=== PATIENT | male | born 1990 | race Caucasian/White ===

== ENCOUNTER 2022-12-31 10:00 | Outpatient (CLI) | payer OTHER ==
[2022-12-31 17:58] LABS: BASOPHILS % (AUTO) 0.4 %; EOSINOPHILS # (AUTO) 0.1 10^3/uL (0.0-0.7); EOSINOPHILS % (AUTO) 1.7 %; HCT - HEMATOCRIT 49.6 % (42.0-52.0); HGB - HEMOGLOBIN 16.4 g/dL (14.0-18.0); LYMPHOCYTES # (AUTO) 1.1 10^3/uL (1.5-3.5); MEAN CORPUSCULAR HEMOGLOBIN 27.7 pg (27.0-31.0); MEAN CORPUSCULAR HGB CONC 33.1 g/dL (32.0-36.0); MEAN CORPUSCULAR VOLUME 83.8 fL (80.0-94.0); MEAN PLATELET VOLUME 9.9 fL (7.4-11.4); MONOCYTES # (AUTO) 0.6 10^3/uL (0.0-1.0); MONOCYTES % (AUTO) 8.8 %; NEUTROPHILS # (AUTO) 5.2 10^3/uL (1.5-6.6); PLT - PLATELET COUNT 369 10^3/uL (130-450); RED BLOOD COUNT 5.92 10^6/uL (4.70-6.10); RED CELL DISTRIBUTION WIDTH 13.1 % (12.0-15.0); WHITE BLOOD COUNT 7.1 x10^3/uL (4.8-10.8)
[2022-12-31 18:10] LABS: ALBUMIN/GLOBULIN RATIO 1.2 (1.0-2.2); BILIRUBIN,TOTAL 0.5 mg/dL (0.2-1.0); CALCIUM 9.1 mg/dL (8.5-10.3); CREATININE 0.9 mg/dL (0.6-1.2); TOTAL PROTEIN 7.4 g/dL (6.7-8.2)
== END 2022-12-31 10:15 | disposition home or self-care (01) ==
LOC: LAB.N 10:00
PROVIDERS: ATTEND Physician Assistant
DX: R19.7 Diarrhea, unspecified (principal)
CPT/HCPCS: 36415; 80053; 85025; 87045; 87046; 87177; 87427; 87493

== ENCOUNTER 2023-01-17 18:43 | Emergency (ER) | payer OTHER ==
[2023-01-17] MEDS ORDERED: SODIUM CHLORIDE 0.9% 1,000 ML IV STA (19:00)
--- NOTE | 2023-01-17 19:09 | ED Physician Documentation ---
PD HPI ABD PAIN - Stated complaint Stated Complaint: MALE GI - Chief complaint Chief Complaint: Abd Pain - History obtained from History obtained from: Patient - Additional information Additional information: 32-year-old gentleman with history of acid reflux frequently takes Pepcid. He got sick with diarrhea first about 5 weeks ago and it was associate with abdominal pain and dark flecks in the stool which he says were tested to be guaiac positive in the clinic. He had outpatient testing done which included basically normal blood work but his stool came back positive for C. difficile. The walk-in clinic put him on Cipro and Flagyl for that and he is not improved and still has migratory abdominal pains, frequent diarrhea, and black flecks in it. He is feeling weak and dizzy. No fevers. PD PAST MEDICAL HISTORY - Present Medications Home Medications: Ambulatory Orders Medication Instructions Recorded Confirmed Vancomycin [Vancocin] 125 mg PO QID #40 cap 01/17/23 - Allergies Allergies/Adverse Reactions: Allergies Allergy/AdvReac Type Severity Reaction Status Date / Time No Known Drug Allergies Allergy Verified 01/17/23 18:50 PD ED PE NORMAL - Vitals Vital signs reviewed: Yes - General General: Alert and oriented X 3, No acute distress - Cardiac Cardiac: RRR, No murmur - Respiratory Respiratory: No respiratory distress, Clear bilaterally - Abdomen Abdomen: Normal bowel sounds, Soft, Non tender - Back Back: No CVA TTP, No spinal TTP - Derm Derm: Normal color, Warm and dry - Neuro Neuro: Alert and oriented X 3, Normal speech Results - Vitals Vitals: Vital Signs - 24 hr 01/17/23 01/17/23 18:50 19:00 Temperature 36.6 C 36.6 C Heart Rate 90 90 Respiratory 16 16 Rate Blood Pressure 125/96 H 125/96 H O2 Saturation 99 99 Oxygen O2 Source Room air - Labs Labs: Laboratory Tests 01/17/23 01/17/23 19:20 19:20 WBC 7.5 RBC 5.67 Hgb 15.8 Hct 48.4 MCV 85.4 MCH 27.9 MCHC 32.6 RDW 13.1 Plt Count 394 MPV 9.1 Neut # (Auto) 4.6 Lymph # (Auto) 2.2 [place] # (Auto) 0.6 Eos # (Auto) 0.1 Baso # (Auto) 0.1 Absolute Nucleated RBC 0.00 Nucleated RBC % 0.0 Sodium 139 Potassium 3.7 Chloride 107 Carbon Dioxide 26 Anion Gap 6.0 BUN 15 Creatinine 1.0 Estimated GFR (MDRD) 87 L Glucose 93 Calcium 9.2 Total Bilirubin 0.3 AST 24 ALT 46 Alkaline Phosphatase 61 Total Protein 7.4 Albumin 4.2 Globulin 3.2 Albumin/Globulin Ratio 1.3 Lipase 36 - Rads (name of study) CT a/p Relevant Findings:: Final report received, EMP independent interpretation of test PD Medical Decision Making - ED course ED course: 32-year-old gentleman was diagnosed few weeks ago with C. difficile colitis. Treated with Cipro and Flagyl. He has not improved. He was worried about alternative etiology and a CT was done showing old only colitis. CBC reviewed and normal. CMP reviewed and normal. He is not tender. We will treat him with oral vancomycin for his likely persistent C. difficile. He was not able to produce a stool sample here. Departure - Departure Disposition: 01 Home, Self Care Clinical Impression: C. difficile colitis Condition: Good Record reviewed to determine appropriate education?: Yes Instructions: Clostridium Difficile Infec Prescriptions: Vancomycin [Vancocin] 125 mg PO QID #40 cap Comments: You were seen today for symptoms likely due to persistent C. difficile colitis. Your CAT scan shows changes consistent with colitis. Your blood work is normal without signs of significant blood loss. Follow-up with your flight surgeon within the next few days for recheck. Return for new or worsening symptoms. We do not recommend taking antidiarrheal agents such as Imodium/loperamide.
[2023-01-17 19:27] LABS: BASOPHILS # (AUTO) 0.1 10^3/uL (0.0-0.1); BASOPHILS % (AUTO) 0.8 %; EOSINOPHILS # (AUTO) 0.1 10^3/uL (0.0-0.7); EOSINOPHILS % (AUTO) 0.9 %; HCT - HEMATOCRIT 48.4 % (42.0-52.0); HGB - HEMOGLOBIN 15.8 g/dL (14.0-18.0); LYMPHOCYTES # (AUTO) 2.2 10^3/uL (1.5-3.5); LYMPHOCYTES % (AUTO) 29.4 %; MEAN CORPUSCULAR HEMOGLOBIN 27.9 pg (27.0-31.0); MEAN CORPUSCULAR HGB CONC 32.6 g/dL (32.0-36.0); MEAN CORPUSCULAR VOLUME 85.4 fL (80.0-94.0); MEAN PLATELET VOLUME 9.1 fL (7.4-11.4); MONOCYTES # (AUTO) 0.6 10^3/uL (0.0-1.0); MONOCYTES % (AUTO) 7.4 %; NEUTROPHILS # (AUTO) 4.6 10^3/uL (1.5-6.6); NEUTROPHILS % (AUTO) 61.2 %; PLT - PLATELET COUNT 394 10^3/uL (130-450); RED BLOOD COUNT 5.67 10^6/uL (4.70-6.10); RED CELL DISTRIBUTION WIDTH 13.1 % (12.0-15.0); WHITE BLOOD COUNT 7.5 x10^3/uL (4.8-10.8)
[2023-01-17] MEDS ORDERED: iohexoL-300 100 ML VIAL ONE (19:42)
[2023-01-17 19:44] LABS: ALBUMIN 4.2 g/dL (3.2-5.5); ALBUMIN/GLOBULIN RATIO 1.3 (1.0-2.2); BILIRUBIN,TOTAL 0.3 mg/dL (0.2-1.0); CALCIUM 9.2 mg/dL (8.5-10.3); POTASSIUM 3.7 mmol/L (3.5-5.0); TOTAL PROTEIN 7.4 g/dL (6.7-8.2)
[2023-01-17] MEDS ORDERED: iohexoL-300 100 ML VIAL IVP ONE (20:11)
--- NOTE | 2023-01-17 20:35 | CT Report ---
PROCEDURE: ABDOMEN/PELVIS W INDICATIONS: central abd pain, c diff CONTRAST: 100 ML OMNI 300 TECHNIQUE: After the administration of intravenous contrast, 5 mm thick sections acquired from the diaphragms to the symphysis. 5 mm thick coronal and sagittal reformats were acquired. For radiation dose reducti on, the following was used: automated exposure control, adjustment of mA and/or kV according to abner ent size. COMPARISON: None. FINDINGS: Image quality: Excellent. Lung bases:There is mild dependent atelectasis. Heart: Heart is normal in size. ABDOMEN: Liver: No mass lesion. Gallbladder: Within normal limits without calcified gallstones. Biliary ducts: No biliary ductal dilatation. Pancreas: Unremarkable. Spleen: Normal in size. Adrenal Glands: No adrenal nodules. Kidneys and Ureters: No hydronephrosis. Stomach and Bowel: Stomach and small bowel loops are normal in caliber and wall thickness. Appendix is normal. There is diffuse mild colonic wall thickening. Peritoneum: No abnormal intraperitoneal fluid. No free air. Ventral Wall: No hernia. Abdominal Nodes: No retroperitoneal or mesenteric adenopathy by size criteria. Vessels: Aorta and inferior vena cava are normal in size. PELVIS: Pelvic Organs: Unremarkable. Bladder: Unremarkable. Pelvic Nodes: No enlarged lymph nodes. Miscellaneous: No inguinal hernias. Bones: Visualized osseous structures demonstrate no suspicious lesions. IMPRESSION: 1. Diffuse mild colonic wall thickening compatible with residual colitis. Reviewed by: Julius Lucio MD on 01/17/2023 8:34 PM PDT Approved by: Julius Lucio MD on 01/17/2023 8:34 PM PDT Station ID: [id number]
[2023-01-17] MEDS ORDERED: VANCOMYCIN 125 MG CAPSULE PO STA (20:46)
[2023-01-17 21:04] VITALS: BP 151/100
== END 2023-01-17 21:04 | disposition home or self-care (01) ==
LOC: ED 18:43
DX: A04.72 Enterocolitis due to Clostridium difficile, not specified as recurrent (principal)
CPT/HCPCS: 36415; 74177; 80053; 83690; 85025; 99284; J8499; Q9967

== ENCOUNTER 2023-01-21 19:28 | Emergency (ER) | payer OTHER ==
[2023-01-21] MEDS ORDERED: MORPHINE 2 MG/ML CARPUJECT IVP STA (20:00)
[2023-01-21] MEDS ORDERED: ONDANSETRON 4 MG/2 ML VIAL IVP STA (20:00)
[2023-01-21 20:04] LABS: BASOPHILS # (AUTO) 0.1 10^3/uL (0.0-0.1); BASOPHILS % (AUTO) 0.7 %; EOSINOPHILS # (AUTO) 0.1 10^3/uL (0.0-0.7); EOSINOPHILS % (AUTO) 1.1 %; HCT - HEMATOCRIT 49.7 % (42.0-52.0); HGB - HEMOGLOBIN 16.4 g/dL (14.0-18.0); LYMPHOCYTES # (AUTO) 2.5 10^3/uL (1.5-3.5); MEAN CORPUSCULAR HEMOGLOBIN 27.9 pg (27.0-31.0); MEAN CORPUSCULAR VOLUME 84.5 fL (80.0-94.0); MEAN PLATELET VOLUME 9.2 fL (7.4-11.4); MONOCYTES # (AUTO) 0.7 10^3/uL (0.0-1.0); MONOCYTES % (AUTO) 7.6 %; NEUTROPHILS # (AUTO) 5.3 10^3/uL (1.5-6.6); NEUTROPHILS % (AUTO) 61.4 %; PLT - PLATELET COUNT 422 10^3/uL (130-450); RED BLOOD COUNT 5.88 10^6/uL (4.70-6.10); RED CELL DISTRIBUTION WIDTH 13.2 % (12.0-15.0); WHITE BLOOD COUNT 8.7 x10^3/uL (4.8-10.8)
[2023-01-21 20:14] LABS: ALBUMIN 4.4 g/dL (3.2-5.5); ALBUMIN/GLOBULIN RATIO 1.3 (1.0-2.2); ALKALINE PHOSPHATASE 73 IU/L (42-121); ALT ALANINE AMINOTRANSFERASE 55 IU/L (10-60); AST ASPARTATE AMINOTRANSFERASE 32 IU/L (10-42); BILIRUBIN,TOTAL < 0.2 mg/dL (0.2-1.0); BUN - BLOOD UREA NITROGEN 11 mg/dL (6-20); CALCIUM 9.1 mg/dL (8.5-10.3); CARBON DIOXIDE - CO2 24 mmol/L (21-32); CHLORIDE 107 mmol/L (101-111); GFR - MDRD 87 (>89); GLUCOSE 109 mg/dL (70-100); LIPASE 39 U/L (22-51); POTASSIUM 3.7 mmol/L (3.5-5.0); SODIUM 139 mmol/L (135-145); TOTAL PROTEIN 7.8 g/dL (6.7-8.2)
--- NOTE | 2023-01-21 20:21 | ED Physician Documentation ---
PD HPI ABD PAIN - Stated complaint Stated Complaint: GI PX - Chief complaint Chief Complaint: Abd Pain - History obtained from History obtained from: Patient - Additional information Additional information: Patient is a 32-year-old male with recent diagnosis of C. difficile presenting for evaluation of worsening upper abdominal pain for the past 1 week.Patient reports having sharp Epigastric pain, particularly when he eats there is been ongoing for the past several days.He states that the pain sometimes does radiate to his chest. He reports a history of heartburn. He is currently on oral vancomycin which she started on January 17 after being seen here in the emergency department. He still reports having 6-7 loose stools per day. He says that the lower abdominal cramping has gotten better. He denies fever, difficulty breathing, vomiting.He was recently started on Ativan for anxiety. Review of Systems Constitutional: denies: Fever Cardiac: denies: Palpitations Respiratory: denies: Dyspnea GI: reports: Abdominal Pain, Diarrhea : denies: Dysuria Musculoskeletal: denies: Back pain Neurologic: denies: Headache PD PAST MEDICAL HISTORY - Present Medications Home Medications: Ambulatory Orders Medication Instructions Recorded Confirmed Vancomycin [Vancocin] 125 mg PO QID #40 cap 01/17/23 01/21/23 LORazepam [Ativan] 1 mg PO Q8HR PRN 01/21/23 01/21/23 Oxycodone HCl/Acetaminophen 1 each PO Q6H PRN #10 tablet 01/22/23 [Percocet 5-325 mg Tablet] - Allergies Allergies/Adverse Reactions: Allergies Allergy/AdvReac Type Severity Reaction Status Date / Time No Known Drug Allergies Allergy Verified 01/21/23 19:31 - Social History Does the pt smoke?: No Smoking Status: Never smoker Does the pt drink ETOH?: No Does the pt have substance abuse?: No - Immunizations Immunizations are current?: Yes - POLST Patient has POLST: No Results - Vitals Vitals: Vital Signs - 24 hr 01/21/23 01/21/23 01/21/23 19:31 20:25 21:20 Temperature 36.8 C Heart Rate 110 H 97 88 Respiratory 18 20 24 Rate Blood Pressure 146/100 H 123/70 125/75 O2 Saturation 98 100 100 01/22/23 01/22/23 00:20 01:30 Temperature 36.1 C L 36.5 C Heart Rate 91 88 Respiratory 17 17 Rate Blood Pressure 160/57 H 128/65 O2 Saturation 96 98 Oxygen O2 Source Room air - EKG (time done) 2016 EKG releavant findings:: EKG personally interpreted by author of this note. Relevant findings are: Rate 102, sinus tachycardia, no STEMI, no ST depressions Rate: Rate (enter#) (102) Rhythm: Sinus tachycardia Ischemia: No: ST elevation c/w ischemia, ST depression Compare to prior EKG: Old EKG unavailable - Labs Labs: Laboratory Tests 01/21/23 01/21/23 01/21/23 19:57 19:57 19:57 WBC 8.7 RBC 5.88 Hgb 16.4 Hct 49.7 MCV 84.5 MCH 27.9 MCHC 33.0 RDW 13.2 Plt Count 422 MPV 9.2 Neut # (Auto) 5.3 Lymph # (Auto) 2.5 [place] # (Auto) 0.7 Eos # (Auto) 0.1 Baso # (Auto) 0.1 Absolute Nucleated RBC 0.00 Nucleated RBC % 0.0 Sodium 139 Potassium 3.7 Chloride 107 Carbon Dioxide 24 Anion Gap 8.0 BUN 11 Creatinine 1.0 Estimated GFR (MDRD) 87 L Glucose 109 H Lactic Acid 2.5 H Calcium 9.1 Total Bilirubin < 0.2 L AST 32 ALT 55 Alkaline Phosphatase 73 Troponin I High Sens Total Protein 7.8 Albumin 4.4 Globulin 3.4 Albumin/Globulin Ratio 1.3 Lipase 39 01/21/23 01/21/23 19:57 23:18 WBC RBC Hgb Hct MCV MCH MCHC RDW Plt Count MPV Neut # (Auto) Lymph # (Auto) [place] # (Auto) Eos # (Auto) Baso # (Auto) Absolute Nucleated RBC Nucleated RBC % Sodium Potassium Chloride Carbon Dioxide Anion Gap BUN Creatinine Estimated GFR (MDRD) Glucose Lactic Acid 1.9 Calcium Total Bilirubin AST ALT Alkaline Phosphatase Troponin I High Sens 2.6 Total Protein Albumin Globulin Albumin/Globulin Ratio Lipase PD Medical Decision Making - ED course Complexity details: reviewed results, re-evaluated patient, d/w patient, d/w family ED course: Patient is a 32-year-old male with recent diagnosis of C. difficile colitis presenting for evaluation of epigastric abdominal pain.Tenderness appears isolated to the upper abdomen without peritoneal signs, rebound or guarding.CBC, chemistry, lactic was obtained. Lactic is slightly elevated at 2.5. Otherwise CBC and chemistries are unremarkable.Given location of pain and patient report of sometimes having radiation into his chest a troponin was obtained which is negative. Patient does not have risk factors for ACS and I feel like ACS would be very unlikely given the rest of the history.Patient did not have any diarrhea while here. He was given IV morphine for his pain along with IV fluids with improvement in his heart rate. Recheck of his lactic was also improved. Chest x-ray which I reviewed is negative for effusion or consolidation, heart size is normal. A CT scan demonstrates that the colitis is improving.Discussed need for continued antibiotics for the treatment of his C. difficile as well as close follow-up with his PCP. I did recommended that he ask for a GI referral given his epigastric abdominal pain as he may need further evaluation. Patient was counseled on strict return precautions. Departure - Departure Disposition: 01 Home, Self Care Clinical Impression: Epigastric abdominal pain, C. difficile colitis Condition: Stable Instructions: ED Epigastric Pain UKO Prescriptions: Oxycodone HCl/Acetaminophen [Percocet 5-325 mg Tablet] 1 each PO Q6H PRN #10 tablet PRN Reason: pain Comments: Your testing today including the CT scan of your abdomen and pelvis shows that your colitis is improving. However the exact cause of the pain in the upper abdomen is unclear. I would recommend you have a referral to a core mounter both for the management of your C. difficile as well as for evaluation of your upper abdominal pain. You may need an endoscopy to take a look inside of your stomach. I will send a small amount of narcotic pain medication to [facility] in [place]. Do not use the pain medication if you are taking the Ativan that you are recently prescribed as a combination of both together can cause you to be overly sedated. I am prescribing a short course of narcotic pain medication for you. These are potentially dangerous and addictive medications that should be used carefully. These medications may constipate you. Take an [id number] stool softener (docusate) twice daily with plenty of water while taking these medications. If you go 24 hours without a bowel movement, take [id number] miralax, per package instructions. Do not drink or drive while taking these medications. If you received narcotic or sedating medications while in the emergency department, do not drive for 24 hours. Store this medication in a safe, secure place and out of reach of children. It is a violation of federal law to give or sell this medication to another person or to use in a manner other than prescribed. The ED will not refill narcotic prescriptions, including prescriptions lost or stolen. To dispose of unwanted medications: 1. [facility] at [address] in [place] has a medication drop box. They accept prescription medications (in pill form) Wednesday through Wednesday 9:00 a.m. to 5:00 p.m. 2. The [facility] [employer] accepts prescription medications (in pill form only) for disposal year round. Call for more infor mation. 3. Contact the [facility] for the next [facility] sponsored prescription drug collection event. , [phone], or [phone]; Note that many narcotic pain relievers also contain Tylenol/acetaminophen. Please ensure that your total dose of acetaminophen from all sources does not exceed 3 g (3000 mg) per day. Forms: Activity restrictions Discharge Date/Time: 01/22/23 01:36
[2023-01-21] MEDS ORDERED: SODIUM CHLORIDE 0.9% 1,000 ML IV STA (20:23)
[2023-01-21] MEDS ORDERED: iohexoL-300 100 ML VIAL ONE (21:18)
--- NOTE | 2023-01-21 22:08 | XRAY Report ---
PROCEDURE: Chest 1 View X-Ray INDICATIONS: CP TECHNIQUE: One view of the chest was acquired. COMPARISON: None. FINDINGS: Surgical changes and devices: None. Lungs and pleura: No pleural effusions or pneumothorax. Lungs are clear. Mediastinum: Mediastinal contours appear normal. Heart size is normal. Bones and chest wall: No suspicious bony lesions. Overlying soft tissues appear unremarkable. IMPRESSION: 1. No acute cardiopulmonary disease. Reviewed by: Julius Lucio MD on 01/21/2023 10:06 PM PDT Approved by: Julius Lucio MD on 01/21/2023 10:06 PM PDT Station ID: [id number]
[2023-01-21] MEDS ORDERED: iohexoL-300 100 ML VIAL IVP ONE (23:19)
[2023-01-22] MEDS ORDERED: FAMOTIDINE 20 MG/2 ML VIAL IVP STA (00:12)
[2023-01-22] MEDS ORDERED: MORPHINE 2 MG/ML CARPUJECT IVP STA (00:12)
--- NOTE | 2023-01-22 00:34 | CT Report ---
PROCEDURE: ABDOMEN/PELVIS W INDICATIONS: upper abd pain CONTRAST: : Omni 300 100 TECHNIQUE: After the administration of intravenous contrast, 5 mm thick sections acquired from the diaphragms to the symphysis. 5 mm thick coronal and sagittal reformats were acquired. For radiation dose reducti on, the following was used: automated exposure control, adjustment of mA and/or kV according to abner ent size. COMPARISON: CT abdomen pelvis 01/17/2023 FINDINGS: Image quality: Excellent. Lung bases:There is minimal dependent atelectasis. Heart: Heart is normal in size. ABDOMEN: Liver: No mass lesion. Gallbladder: Within normal limits without calcified gallstones. Biliary ducts: No biliary ductal dilatation. Pancreas: Unremarkable. Spleen: Normal in size. Adrenal Glands: No adrenal nodules. Kidneys and Ureters: No hydronephrosis. Stomach and Bowel: Stomach and small bowel loops are normal in caliber and wall thickness. No eviden ce of appendicitis. There is decreased colonic wall thickening with minimal residual thickening in th e hepatic flexure and transverse colon. There is colonic diverticulosis without acute diverticulitis. Peritoneum: No abnormal intraperitoneal fluid. No free air. Ventral Wall: No hernia. Abdominal Nodes: No retroperitoneal or mesenteric adenopathy by size criteria. Vessels: Aorta and inferior vena cava are normal in size. PELVIS: Pelvic Organs: Unremarkable. Bladder: Unremarkable. Pelvic Nodes: No enlarged lymph nodes. Miscellaneous: No inguinal hernias. Bones: Visualized osseous structures demonstrate no suspicious lesions. IMPRESSION: 1. Decreased colonic wall thickening with minimal residual thickening in the transverse colon and hep atic flexure. Findings are compatible with a resolving colitis. Reviewed by: Julius Lucio MD on 01/22/2023 12:33 AM PDT Approved by: Julius Lucio MD on 01/22/2023 12:33 AM PDT Station ID: [id number]
[2023-01-22] MEDS ORDERED: oxyCODONE/ACET 5/325 Prepack 4 PO STA (01:00)
[2023-01-22 01:36] VITALS: BP 128/65
== END 2023-01-22 01:36 | disposition home or self-care (01) ==
LOC: ED 19:28
DX: R10.13 Epigastric pain (principal); A04.72 Enterocolitis due to Clostridium difficile, not specified as recurrent
CPT/HCPCS: 36415; 71045; 74177; 80053; 83605; 83690; 84484; 85025; 93005; 96374; 96375; 96376; 99284; Q9967

== ENCOUNTER 2023-11-21 20:53 | Emergency (ER) | payer OTHER ==
[2023-11-21 21:07] VITALS: O2SAT 99
[2023-11-21] MEDS ORDERED: DEXAMETHASONE 10 MG/ML VIAL PO STA (21:08)
[2023-11-21] MEDS ORDERED: IPRATROPIUM/ALBUTEROL 3 ML NEB INH STA (21:08)
[2023-11-21] MEDS ORDERED: CHERRY SYRUP 10 ML UDC PO ONE (21:08)
--- NOTE | 2023-11-21 21:11 | ED Physician Documentation ---
PD HPI URI - Stated complaint Stated Complaint: SOA - Chief complaint Chief Complaint: Resp - History obtained from History obtained from: Patient - Additional information Additional information: 32-year-old male with history of Gudino's esophagus, acid reflux presents by private vehicle from home for 2 weeks of nonproductive cough and shortness of breath. Took an albuterol treatment earlier this evening that he had been prescribed previously for bronchitis, but he did not feel improvement and so he called the nursing hotline, and they advised him to come to the ER for treatment. Reports fever of 101 Fahrenheit at home last week, temperature at home prior to arrival 99 Fahrenheit. Afebrile in the emergency department. Review of Systems Constitutional: reports: Fever. denies: Chills Cardiac: denies: Chest pain / pressure, Palpitations, Calf pain Respiratory: reports: Dyspnea, Cough, Wheezing : denies: Dysuria, Frequency, Hesitancy Musculoskeletal: denies: Neck pain, Back pain, Extremity pain Neurologic: denies: Generalized weakness, Focal weakness, Numbness PD PAST MEDICAL HISTORY - Past Medical History Past Medical History: Yes GI: GERD, C.difficile Psych: Anxiety Derm: Other - Past Surgical History Past Surgical History: No HEENT: Tonsil/Adenoidectomy, Other Derm: Other - Present Medications Home Medications: Ambulatory Orders Medication Instructions Recorded Confirmed Albuterol Sulf [Ventolin Hfa 1 - 2 puffs INH Q4HR PRN #1 each 11/21/23 Inhaler] Doxycycline Hyclate 100 mg PO BID 5 Days #10 cap 11/21/23 Nortriptyline [Pamelor] 75 mg 11/21/23 Pantoprazole [Protonix] 11/21/23 clonazePAM [Clonazepam] 1 mg DAILY 11/21/23 11/21/23 predniSONE [Deltasone] 20 mg PO DAILY 5 Days #5 tablet 11/21/23 - Allergies Allergies/Adverse Reactions: Allergies Allergy/AdvReac Type Severity Reaction Status Date / Time No Known Drug Allergies Allergy Verified 11/21/23 21:09 - Social History Does the pt smoke?: No Smoking Status: Never smoker Does the pt drink ETOH?: No Does the pt have substance abuse?: No - Immunizations Immunizations are current?: Yes - POLST Patient has POLST: No PD ED PE NORMAL - Vitals Vital signs reviewed: Yes - General General: Alert and oriented X 3, No acute distress, Well developed/nourished - Cardiac Cardiac: RRR, Strong equal pulses - Respiratory Respiratory: No respiratory distress, Other (No rales, no rhonchi, moderate expiratory wheezes all lung anglin, speaking in complete sentences without dyspnea) - Abdomen Abdomen: Soft, Non tender, Non distended - Neuro Neuro: Alert and oriented X 3, communications instructor 2-12 intact, No motor deficit, Normal speech Results - Vitals Vitals: Vital Signs - 24 hr 11/21/23 11/21/23 11/21/23 20:55 21:25 21:43 Temperature 37.0 C Heart Rate 110 H 130 H 129 H Respiratory 18 18 20 Rate Blood Pressure 158/96 H 150/126 H O2 Saturation 99 99 Oxygen O2 Source duoneb tx PD Medical Decision Making - ED course Complexity details: reviewed results, re-evaluated patient, considered differential, d/w patient ED course: 2 weeks of respiratory symptoms. Saturating 99% on room air, afebrile, speaking in complete sentences without dyspnea. He does have moderate expiratory wheezes on pulmonary exam. Suspect bronchitis. Due to duration of symptoms will order chest x-ray, however have a low suspicion for pneumonia at this time. Steroids and breathing treatments ordered. Patient reports feeling improved after nebulizers and steroids. Chest x-ray does actually show a faint area of middle right lobar pneumonia. In absence of serious known comorbidities we will treat with 5 days of doxycycline. Since pharmacies are currently closed initial dose was given in the emergency department. Since patient is wheezing we will also send with short course of steroids. Patient requested a refill of albuterol, which was sent to pharmacy of choice. Note for work provided. Departure - Departure Disposition: Home, Self Care Clinical Impression: Bronchitis Pneumonia Qualifiers: Pneumonia type: due to unspecified organism Laterality: right Lung location: middle lobe of lung Qualified Code(s): J18.9 - Pneumonia, unspecified organism Condition: Stable Instructions: Pneumonia Dc Prescriptions: Albuterol Sulf [Ventolin Hfa Inhaler] 1 - 2 puffs INH Q4HR PRN #1 each PRN Reason: Shortness Of Air/Wheezing predniSONE [Deltasone] 20 mg PO DAILY 5 Days #5 tablet Doxycycline Hyclate 100 mg PO BID 5 Days #10 cap Forms: PCP List Discharge Date/Time: 11/21/23 22:03
--- NOTE | 2023-11-21 21:42 | XRAY Report ---
PROCEDURE: Chest 1V INDICATIONS: COUGH X2 WKS TECHNIQUE: One view of the chest was acquired. COMPARISON: None. FINDINGS: Surgical changes and devices: None. Lungs and pleura: Right middle lung zone consolidation. Mediastinum: Mediastinal contours appear normal. Heart size is normal. Bones and chest wall: No suspicious bony lesions. Overlying soft tissues appear unremarkable. IMPRESSION: Right middle lung zone consolidation, concerning for pneumonia. Reviewed by: Sergey Gonzalez MD on 11/21/2023 9:40 PM PST Approved by: Sergey Gonzalez MD on 11/21/2023 9:40 PM [facility] Station ID: [id number]
[2023-11-21 21:44] VITALS: BP 150/126
[2023-11-21] MEDS ORDERED: DOXYCYCLINE 100 MG TABLET PO STA (21:46)
== END 2023-11-21 22:03 | disposition home or self-care (01) ==
LOC: ED 20:53
DX: J40 Bronchitis, not specified as acute or chronic (principal); J18.9 Pneumonia, unspecified organism
CPT/HCPCS: 71045; 94640; 99283; 99284; A9270

== ENCOUNTER 2024-04-05 14:30 | Outpatient (CLI) | payer OTHER | END 2024-04-05 14:45 | disposition home or self-care (01) | LOC: LAB.N 14:30 | PROVIDERS: ATTEND Physician Assistant | DX: R19.7 Diarrhea, unspecified (principal) | CPT/HCPCS: 87045; 87046; 87427; 87493 ==

== ENCOUNTER 2024-04-08 03:57 | Outpatient (CLI) | payer OTHER | END 2024-04-08 23:59 | disposition critical access hospital (66) | LOC: EMS 03:57 | PROVIDERS: ATTEND Emergency Medicine | DX: R11.2 Nausea with vomiting, unspecified (principal); R10.84 Generalized abdominal pain; R10.817 Generalized abdominal tenderness; R19.5 Other fecal abnormalities | CPT/HCPCS: A0425; A0427 ==

== ENCOUNTER 2024-04-08 04:17 | Emergency (ER) | payer OTHER ==
--- NOTE | 2024-04-08 04:24 | ED Physician Documentation ---
PD HPI ABD PAIN - Stated complaint Stated Complaint: ABD PX/NAUSEA - History obtained from History obtained from: Patient, EMS - Additional information Additional information: [place]. HPI from patient; EMS also provides further information. Patient complains of 3 days of nausea, vomiting, and diarrhea. He has had abdominal pain, generalized described as abdominal cramping pain. Over the past 1 to 2 days, he notes that his stools have become black and tarry. He has had low-grade fevers, Tmax 100.5. He says there are multiple household contacts with similar gastrointestinal (acute) symptoms, but far less severe than the patient has been experiencing. FSBS 115 per EMS. Patient has history of c diff colitis; he was seen in the outpatient setting a few days ago, and I note a negative C. difficile result from 04/05/2024. Review of Systems Constitutional: reports: Fever Cardiac: reports: Reviewed and negative Respiratory: reports: Reviewed and negative GI: reports: Abdominal Pain, Nausea, Vomiting, Diarrhea, Bloody / black stool. denies: Abdominal Swelling PD PAST MEDICAL HISTORY - Past Medical History Past Medical History: Yes GI: GERD, C.difficile Other Past Medical History: barett's esophagus - Present Medications Home Medications: Ambulatory Orders Medication Instructions Recorded Confirmed Albuterol Sulf [Ventolin Hfa 1 - 2 puffs INH Q4HR PRN #1 each 11/21/23 Inhaler] Doxycycline Hyclate 100 mg PO BID 5 Days #10 cap 11/21/23 Nortriptyline [Pamelor] 75 mg 11/21/23 Pantoprazole [Protonix] 11/21/23 clonazePAM [Clonazepam] 1 mg DAILY 11/21/23 11/21/23 predniSONE [Deltasone] 20 mg PO DAILY 5 Days #5 tablet 11/21/23 Diphenoxylate/Atropine [Lomotil] 1 each PO QID PRN #8 tablet 04/08/24 Oxycodone HCl/Acetaminophen 1 - 2 each PO Q6H PRN #14 tablet 04/08/24 [Percocet 5-325 mg Tablet] - Allergies Allergies/Adverse Reactions: Allergies Allergy/AdvReac Type Severity Reaction Status Date / Time No Known Drug Allergies Allergy Verified 11/21/23 21:09 PD ED PE NORMAL - Vitals Vital signs reviewed: Yes - General General: Alert and oriented X 3, No acute distress, Well developed/nourished - Cardiac Cardiac: RRR, No murmur - Respiratory Respiratory: No respiratory distress, Clear bilaterally - Abdomen Abdomen: Soft, Non distended, Other (diffuse mild-moderate TTP with relative sparing of RLQ; no rebound , no guarding) - Derm Derm: Normal color, Warm and dry Results - Vitals Vitals: Vital Signs - 24 hr 04/08/24 04/08/24 04/08/24 04:22 05:33 06:40 Temperature 36.9 C 36.9 C Heart Rate 89 97 84 Respiratory 16 16 16 Rate Blood Pressure 133/92 H 137/73 H 157/98 H O2 Saturation 97 97 98 Oxygen O2 Source Room air - Labs Labs: Microbiology 04/08/24 03:00 Occult Blood - Final Stool Laboratory Tests 04/08/24 04/08/24 04:34 04:34 WBC 8.4 RBC 5.00 Hgb 13.5 L Hct 42.7 MCV 85.4 MCH 27.0 MCHC 31.6 L RDW 14.0 Plt Count 325 MPV 9.4 Neut # (Auto) 7.0 H Lymph # (Auto) 0.6 L [place] # (Auto) 0.7 Eos # (Auto) 0.1 Baso # (Auto) 0.0 Absolute Nucleated RBC 0.00 Nucleated RBC % 0.0 Sodium 138 Potassium 3.6 Chloride 106 Carbon Dioxide 27 Anion Gap 5.0 L BUN 14 Creatinine 1.0 Estimated GFR (MDRD) 86 L Glucose 113 H Calcium 8.6 Total Bilirubin 0.4 AST 40 ALT 32 Alkaline Phosphatase 74 Total Protein 6.4 Albumin 3.6 Globulin 2.8 Albumin/Globulin Ratio 1.3 Lipase 18 - Rads (name of study) CT A/P with IV contrast Relevant Findings:: Prelim report reviewed, See rad report PD Medical Decision Making - ED course Complexity details: reviewed results, re-evaluated patient, considered differential, d/w patient ED course: No concerning nor diagnostic findings on CBC, ER abdominal panel. CT A/P with IV contrast interpreted by radiologist as "New mild partial haziness of the left upper abdominal small bowel mesenteric fat associated with prominent to mildly enlarged lymph nodes, due to nonspecific mesenteritis." Stool sample sent to lab, guaiac is positive. Stool culture and c diff pending. Patient is given 1 L normal saline IV, 4 mg IV Zofran, 30 mg IV Toradol, and 4 mg IV morphine. Results discussed with patient. On reevaluation, he is in NAD and reporting adequate symptom relief. Return precautions are reviewed. Provided take-home pack of Percocet, given 1 tablet Lomotil p.o. I have electronically submitted prescriptions for both Percocet and Lomotil to [facility] pharmacy in [place]. 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 Departure - Departure Disposition: Home, Self Care Clinical Impression: Abdominal pain Qualifiers: Abdominal location: generalized Qualified Code(s): R10.84 - Generalized abdominal pain Condition: Good Instructions: ED Abdominal Pain Unkn Cause Male Prescriptions: Diphenoxylate/Atropine [Lomotil] 1 each PO QID PRN #8 tablet PRN Reason: Diarrhea Oxycodone HCl/Acetaminophen [Percocet 5-325 mg Tablet] 1 - 2 each PO Q6H PRN #14 tablet PRN Reason: pain Comments: There were no concerning nor diagnostic findings on tonight's blood tests. Your stool sample was positive for blood in the stool. The CT scan of your abdomen and pelvis shows mild inflammation of a short segment of your small intestines in the left upper quarter of your abdomen; this is a non-specific f inding. There are various causes of such a finding including infection (which, furthermore, could be viral or bacterial). Rarely, such a finding is due to an auto-immune problem. The abnormality is not extensive enough to indicate/require further treatment in the ER nor admission to the hospital, but it is very important that you follow-up with your primary care provider (ideally with your cement mason maintenance) within the next few days for reevaluation. The radiologist's initial interpretation of your CT scan is "New mild partial haziness of the left upper abdominal small bowel mesenteric fat associated with prominent to mildly enlarged lymph nodes, due to nonspecific mesenteritis." I have electronically submitted prescriptions for Percocet (narcotic/opiate pain medication) as well as lomotil (anti-diarrheal medication) to the [facility] pharmacy in [place]. There are still pending tests on your stool sample; you will be contacted by someone from this emergency department with any abnormal results. You will not be contacted if the results are normal. I am prescribing a short course of narcotic pain medication for you. These are potentially dangerous and addictive medications that should be used carefully. These medications may constipate you. Take an [id number] stool softener (docusate) twice daily with plenty of water while taking these medications. If you go 24 hours without a bowel movement, take [id number] miralax, per package instructions. Do not drink or drive while taking these medications. If you received narcotic or sedating medications while in the emergency department, do not drive for 24 hours. Store this medication in a safe, secure place and out of reach of children. It is a violation of federal law to give or sell this medication to another person or to use in a manner other than prescribed. The ED will not refill narcotic prescriptions, including prescriptions lost or stolen. To dispose of unwanted medications: 1. [facility] at [address] in [place] has a medication drop box. They accept prescription medications (in pill form) Wednesday through Wednesday 9:00 a.m. to 5:00 p.m. 2. [facility] accepts prescription medications (in pill form only) for disposal year round. Call for more information. 3. Contact the [facility] for the next [facility] sponsored prescription drug collection event. , [phone], or [phone]; Forms: PCP List Discharge Date/Time: 04/08/24 06:50
[2024-04-08] MEDS: KETOROLAC 30 MG/ML VIAL IVP STA (04:36)
[2024-04-08] MEDS: ONDANSETRON 4 MG/2 ML VIAL IVP STA (04:37)
[2024-04-08] MEDS: SODIUM CHLORIDE 0.9% 1,000 ML IV STA (04:38)
[2024-04-08 04:41] LABS: BASOPHILS % (AUTO) 0.4 %; EOSINOPHILS # (AUTO) 0.1 10^3/uL (0.0-0.7); EOSINOPHILS % (AUTO) 1.2 %; HCT - HEMATOCRIT 42.7 % (42.0-52.0); HGB - HEMOGLOBIN 13.5 g/dL (14.0-18.0); LYMPHOCYTES # (AUTO) 0.6 10^3/uL (1.5-3.5); LYMPHOCYTES % (AUTO) 7.6 %; MEAN CORPUSCULAR HGB CONC 31.6 g/dL (32.0-36.0); MEAN CORPUSCULAR VOLUME 85.4 fL (80.0-94.0); MEAN PLATELET VOLUME 9.4 fL (7.4-11.4); MONOCYTES # (AUTO) 0.7 10^3/uL (0.0-1.0); MONOCYTES % (AUTO) 7.9 %; NEUTROPHILS % (AUTO) 82.7 %; PLT - PLATELET COUNT 325 10^3/uL (130-450); WHITE BLOOD COUNT 8.4 x10^3/uL (4.8-10.8)
[2024-04-08] MEDS ORDERED: iohexoL-300 100 ML VIAL ONE (04:46)
[2024-04-08 04:55] LABS: ALBUMIN 3.6 g/dL (3.2-5.5); ALBUMIN/GLOBULIN RATIO 1.3 (1.0-2.2); BILIRUBIN,TOTAL 0.4 mg/dL (0.2-1.0); CALCIUM 8.6 mg/dL (8.5-10.3); POTASSIUM 3.6 mmol/L (3.5-4.5); TOTAL PROTEIN 6.4 g/dL (6.4-8.9)
[2024-04-08] MEDS: MORPHINE 2 MG/ML CARPUJECT IVP STA (05:31)
[2024-04-08] MEDS: iohexoL-300 100 ML VIAL IVP ONE (05:50)
[2024-04-08] MEDS: DIPHENOX/ATROPINE 2.5/0.025 MG TABLET PO STA (06:35)
[2024-04-08] MEDS: oxyCODONE/ACET 5/325 Prepack 4 PO STA (06:35)
[2024-04-08 06:46] VITALS: BP 157/98; O2SAT 98
--- NOTE | 2024-04-08 06:55 | CT Report ---
PROCEDURE: Abdomen/Pelvis W INDICATIONS: abd. pain CONTRAST: 100 ML OMNII 300 TECHNIQUE: After the administration of intravenous contrast, a CT scan of the abdomen and pelvis was performed. Images were recorded and evaluated at appropriate window settings. Reformats: coronal and sagittal. F or radiation dose reduction, the following was used: automated exposure control, adjustment of mA and /or kV according to patient size. COMPARISON: 07/21/2023 FINDINGS: Image quality: Diagnostic Lower chest: Unremarkable lung bases and no pleural effusions. Normal heart size where visualized Liver: Unremarkable Gallbladder and biliary system: Unremarkable, nondilated Pancreas: No ductal dilation Spleen: Nonenlarged Adrenals: No discrete nodules Kidneys: No solid mass or hydronephrosis Vessels and lymph nodes: The main portal vein is patent. No abdominal aortic aneurysm. No pathologic lymph nodes by size criteria. Bowel and peritoneum: No evidence of small bowel obstruction. No pathologic ascites. No drainable abs cess. Mild mesenteric fat stranding in the jejunal. Body wall: Unremarkable. Pelvis: Bladder is underdistended. The prostate is not well evaluated on this study. There may be sma ll fat-containing hernias Bones: No acute or suspicious osseous finding. IMPRESSION: No acute abdominopelvic abnormality. Mild jejunal mesenteric fat stranding may represent nonspecific mesenteritis. Other findings as above. Agree with preliminary report. Reviewed by: Antony Adler MD on 04/08/2024 6:53 AM PDT Approved by: Antony Adler MD on 04/08/2024 6:53 AM PDT Station ID: [id number]
[2024-04-09 07:07] LABS: ADENOVIRUS F 40/41 Not Detected (Not Detected); ASTROVIRUS Not Detected (Not Detected); C DIFFICILE TOXIN A/B Not Detected (Not Detected); CAMPYLOBACTER Not Detected (Not Detected); CRYPTOSPORIDIUM Not Detected (Not Detected); CYCLOSPORA CAYETANENSIS Not Detected (Not Detected); ENTAMOEBA HISTOLYTICA Not Detected (Not Detected); ENTEROAGGREGATIVE E COLI Not Detected (Not Detected); ENTEROPATHOGENIC E COLI Not Detected (Not Detected); ENTEROTOXIGENIC E COLI Not Detected (Not Detected); GIARDIA LAMBLIA Not Detected (Not Detected); NOROVIRUS GI/GII Detected (Not Detected); PLESIOMONAS SHIGELLOIDES Not Detected (Not Detected); ROTAVIRUS A Not Detected (Not Detected); SALMONELLA Not Detected (Not Detected); SAPOVIRUS Not Detected (Not Detected); SHIGA-TOXIN-PRODUCING E COLI Not Detected (Not Detected); SHIGELLA/ENTEROINVASIVE E COLI Not Detected (Not Detected); VIBRIO Not Detected (Not Detected); VIBRIO CHOLERAE Not Detected (Not Detected); YERSINIA ENTEROCOLITICA Not Detected (Not Detected)
== END 2024-04-08 06:50 | disposition home or self-care (01) ==
LOC: EDSEX → ED 04:17
DX: R10.84 Generalized abdominal pain (principal); K92.1 Melena
CPT/HCPCS: 36415; 74177; 80053; 82272; 83690; 85025; 87507; 96374; 96375; 99284; A9270; Q9967

== ENCOUNTER 2024-07-15 21:15 | Emergency (ER) | payer OTHER ==
[2024-07-15 21:31] VITALS: BP 181/111; O2SAT 98
--- NOTE | 2024-07-15 21:32 | ED Physician Documentation ---
History of Present Illness - Stated complaint Stated Complaint: SINUS PX - Chief complaint Chief Complaint: General - Additonal information Additional information: 33-year-old male presents emergency department for severe sinus pressure. Stephani lizama said that he has been sick for over a week now unsure exact amount of time but says over the last couple days he has been having increased severe worsening face pressure to the point where it hurts to his teeth he took Sudafed today to see if this could help with this he has had little to no relief with that and is still feeling very jittery as he says he also takes Adderall. Unsure presenting fevers or chills but does describe his mucus as bright green. PD PAST MEDICAL HISTORY - Past Medical History Past Medical History: Yes GI: GERD, C.difficile Psych: Anxiety Derm: Other - Past Surgical History Past Surgical History: No HEENT: Tonsil/Adenoidectomy, Other Derm: Other - Present Medications Home Medications: Ambulatory Orders Medication Instructions Recorded Confirmed Albuterol Sulf [Ventolin Hfa 1 - 2 puffs INH Q4HR PRN #1 each 11/21/23 Inhaler] Doxycycline Hyclate 100 mg PO BID 5 Days #10 cap 11/21/23 Nortriptyline [Pamelor] 75 mg 11/21/23 Pantoprazole [Protonix] 11/21/23 clonazePAM [Clonazepam] 1 mg DAILY 11/21/23 11/21/23 predniSONE [Deltasone] 20 mg PO DAILY 5 Days #5 tablet 11/21/23 Diphenoxylate/Atropine [Lomotil] 1 each PO QID PRN #8 tablet 04/08/24 Oxycodone HCl/Acetaminophen 1 - 2 each PO Q6H PRN #14 tablet 04/08/24 [Percocet 5-325 mg Tablet] Amox/Clav 875/125 [Augmentin 1 tablet PO Q12H 7 Days #13 tablet 07/15/24 875/125 Tab] - Allergies Allergies/Adverse Reactions: Allergies Allergy/AdvReac Type Severity Reaction Status Date / Time No Known Drug Allergies Allergy Verified 11/21/23 21:09 - Social History Does the pt smoke?: No Smoking Status: Never smoker Does the pt drink ETOH?: No Does the pt have substance abuse?: No - Immunizations Immunizations are current?: Yes - POLST Patient has POLST: No PD ED PE NORMAL - Vitals Vital signs reviewed: Yes - General General: Alert and oriented X 3, No acute distress, Well developed/nourished - HEENT HEENT: Other (Sinus tenderness with palpation bilaterally right worse than left.) - Respiratory Respiratory: No respiratory distress, Clear bilaterally - Derm Derm: Normal color, Warm and dry, No rash Results - Vitals Vitals: Vital Signs - 24 hr 07/15/24 21:20 Temperature 35.6 C L Heart Rate 101 H Respiratory 20 Rate Blood Pressure 181/111 H O2 Saturation 98 Oxygen O2 Source Room air PD Medical Decision Making - ED course ED course: 33-year-old male presents emergency department for severe sinus pressure and pain. Patient was also found to be tachycardic but does report that he just recently took Sudafed and does take Adderall for ADD. Patient has severe tende rness to the sinus area and given that he has had the symptoms for over 10 daysW the antibiotics are warranted. He was given first dose of Augmentin here in the emergency department for sinusitis and prescription of Augmentin was sent to his preferred pharmacy. Return precautions open given patient was told to hold off on taking Sudafed and Adderall at the same time in the future. Return precaut ions given patient told to follow-up with primary care provider. Departure - Departure Disposition: 01 Home, Self Care Clinical Impression: Sinus infection Instructions: ED Sinusitis Abx Tx Prescriptions: Amox/Clav 875/125 [Augmentin 875/125 Tab] 1 tablet PO Q12H 7 Days #13 tablet Comments: Thank for trusting us with your care. We have prescribed you an antibiotic called Augmentin you took the first dose here in the emergency department you will start taking it twice a day morning and evening tomorrow for the next 7 days. If after 5 days your symptoms have fully resolved and you are not feeling completely better I would not continue the antibiotics you can discontinue them 2 days early. If you are still feeling ill and not entirely better go ahead and complete the full course of antibiotics for a total of 7 days. Follow-up with your primary care provider as needed please come back to the ER if after 2 days of taking antibiotics you have no improvement of symptoms. Wishing You a speedy recovery.. Forms: PCP List Discharge Date/Time: 07/15/24 21:43
[2024-07-15] MEDS: AMOX/CLAV 875 MG/125 MG TABLET PO STA (21:39)
== END 2024-07-15 21:43 | disposition home or self-care (01) ==
LOC: ED 21:15
DX: J32.9 Chronic sinusitis, unspecified (principal)
CPT/HCPCS: 99283; A9270